=== PATIENT | male | born 1985 | race African-American/Black ===

== ENCOUNTER 2017-11-08 03:40 | Emergency (ER) | payer SELFPAY ==
[2017-11-08 03:49] VITALS: BP 114/57
[2017-11-08] MEDS ORDERED: LIDOCAINE 1% INJ (10 MG/ML) 10 ML MDV INJ ONE (04:22)
[2017-11-08] MEDS ORDERED: BUPIVACAINE HCL 0.5 % INJ/PF 30 ML SDV INJ ONE (04:22)
--- NOTE | 2017-11-08 04:28 | ER Document Report ---
ED Oral Problem - General Chief Complaint: Toothache Stated Complaint: TOOTHACHE Time Seen by Provider: 11/08/17 04:04 Mode of Arrival: Ambulatory Information source: Patient TRAVEL OUTSIDE OF THE [place] IN LAST 30 DAYS: No - HPI Patient complains to provider of: Toothache Notes: Patient is here with complaints of left lower dental pain for the last 3 days. No fever. No difficulty breathing or swallowing. No nausea, vomiting, diarrhea. Pain is worse with eating. Nothing seems to make it better. No rash. No facial swelling. No chest pain or shortness of breath. No other complaints at this time. - Related Data Allergies/Adverse Reactions: No Known Allergies Allergy (Verified 11/08/17 03:44) Past Medical History - Social History Smoking Status: Current Every Day Smoker Family History: Reviewed & Not Pertinent Patient has suicidal ideation: No Patient has homicidal ideation: No Renal/ Medical History: Denies: Hx Peritoneal Dialysis Review of Systems - Review of Systems -: Yes All other systems reviewed and negative Physical Exam - Vital signs Vitals: Temp Pulse Resp BP Pulse Ox 98.8 F 88 18 114/57 L 99 11/08/17 03:48 11/08/17 03:48 11/08/17 03:48 11/08/17 03:48 11/08/17 03:48 - Notes Notes: GENERAL: alert, cooperative, nontoxic, no distress. HEAD: normocephalic, atraumatic EYES: conjunctiva pink without discharge, no external redness or swelling. EARS: no external swelling, no external redness, no mastoid redness, swelling, tenderness. Ear canals are clear without swelling or drainage. TMs pearly gauthier , no redness, no bulging, normal landmarks, no perforation. NOSE: atraumatic, no external swelling. clear rhinorrhea noted. MOUTH/THROAT: mucous membranes moist and pink, posterior pharynx without erythema, swelling, exudate. No trismus or drooling. Large cavity and tooth # 17. No gum swelling or abscess. No sublingual swelling or induration. NECK: soft, supple, full range of motion, no meningismus. CHEST: no distress, lungs clear and equal throughout. No wheezing, rales, rhonchi. CARDIAC: regular rate and rhythm, no murmur, normal capillary refill, normal pulses. No peripheral edema noted. BACK: full range of motion, no CVA tenderness. EXTREMITIES: full range of motion of all extremities. No redness, no swelling. NEURO: alert and oriented A&O3, no focal deficits, full range of motion of all extremities. PYSCH: appropriate mood, affect. Patient is cooperative. SKIN: pink, warm, dry, no rash. Course - Re-evaluation Re-evalutation: 11/08/17 04:24 Patient is nontoxic appearing with stable vitals. He is here with left lower dental pain. He has got a large cavity noted. No gum swelling. No sign of Felipe's angina. I will perform a dental block with lidocaine and bupivacaine. Patient will be discharged home small supply of pain medication as well as [facility] referrals. Follow-up if not better in the next few days, sooner for worsening symptoms, high fever, difficulty breathing or swallowing, or for any further concerns. The patient's emergency department workup and current diagnosis were explained to the patient and or family. Follow-up instructions were provided. Medications if prescribed were discussed. Instructions for when to return to the emergency department including specific worrisome symptoms were discussed with the patient and/or family. - Vital Signs Vital signs: Temp Pulse Resp BP Pulse Ox 98.8 F 88 18 114/57 L 99 11/08/17 03:48 11/08/17 03:48 11/08/17 03:48 11/08/17 03:48 11/08/17 03:48 Discharge - Discharge Clinical Impression: Dental caries Condition: Stable Disposition: HOME, SELF-CARE Instructions: [facility] [place], Penicillin V K ([facility]), Toothache ([facility]), Oral Narcotic Medication ([facility]), Dentist Additional Instructions: Take medications as prescribed. Drink plenty fluids. Follow-up if not better in the next 5-7 days, sooner for worsening symptoms, high fever, difficulty breathing or swallowing, significant swelling, or for any further concerns. The medication you were prescribed today may cause drowsiness. Do not drive or operate heavy machinery while taking this medication. Prescriptions: Tramadol HCl [Ultram 50 mg Tablet] 50 mg PO Q6HP PRN #6 tablet PRN Reason: Penicillin V Potassium [Penicillin Vk 500 mg Tablet] 500 mg PO BID #20 tablet Forms: Smoking Cessation Education Referrals: [facility] [Provider Group] - Follow up as needed [facility] [Provider Group] - Follow up as needed
[2017-11-08] MEDS ORDERED: IBUPROFEN 600 MG TABLET PO ONE (04:34)
== END 2017-11-08 05:10 | disposition home or self-care (01) ==
LOC: ER 03:40
PROC: 3E0T3BZ Introduction of Anesthetic Agent into Peripheral Nerves and Plexi, Percutaneous Approach (ICD-10-PCS; principal; 2017-11-08)
DX: K02.9 Dental caries, unspecified (principal); F17.200 Nicotine dependence, unspecified, uncomplicated
CPT/HCPCS: 99282; 64400; J3490